=== PATIENT | male | born 1955 | race American Indian/Alaskan Native ===

== ENCOUNTER 2016-11-15 10:00 | Emergency (ER) | payer OTHER ==
--- NOTE | 2016-11-15 13:39 | Emergency Department Report ---
ED Lower Extremity HPI - General Chief Complaint: Extremity Injury, Lower Stated Complaint: LT FOOT SWOLLEN Time Seen by Provider: 11/15/16 13:13 Source: patient Mode of arrival: Ambulatory Limitations: No Limitations - History of Present Illness Initial Comments: 61-year-old male past medical history gout flares, hypertension, diabetes presents with complaint of approximately 7 days of left foot pain. Patient states that the pain and swelling in his left foot is classic of his previous gout flares. Patient went to primary doctor who prescribed tramadol. Patient states the tramadol is providing minimal to no relief of his pain. Patient denies fevers chills. Patient is ambulatory. Denies any direct trauma to the foot. Patient is ambulatory MD Complaint: other (left foot gout flare) Onset/Timin -: week(s) Injury: Foot: Left (1 week of left foot gout flare) Place: home Severity: moderate Severity scale (0 -10): 7 Improves With: nothing (patient is using tramadol with minimal relief of pain) Worsens With: weight bearing, movement Associated Symptoms: swelling, ambulatory (patient is ambulatory slightly antalgic gait) - Related Data Home Medications Medication Instructions Recorded Confirmed Last Taken metFORMIN [Glucophage] 500 mg PO BID 07/21/14 07/21/14 07/21/14 Previous Rx's Medication Instructions Recorded Last Taken Type HYDROcodone/APAP 5-325 [[place] 1 each PO Q6HR PRN #15 tablet 12/24/14 Unknown Rx 5-325 mg TAB] Indomethacin 50 mg PO Q8H #30 capsule 12/24/14 Unknown Rx Acetaminophen/Codeine [Tylenol 1 tab PO Q6H PRN #5 tab 11/15/16 Unknown Rx /Codeine # 3 tab] Naproxen [Naproxen TAB] 250 mg PO Q12H PRN #20 tablet 11/15/16 Unknown Rx Prednisone [predniSONE 5 mg (6-Day 5 mg PO .TAPER #1 tab.ds.pk 11/15/16 Unknown Rx Pack, 21 Tabs)] Allergies Allergy/AdvReac Type Severity Reaction Status Date / Time No Known Allergies Allergy Verified 11/15/16 10:21 ED Review of Systems ROS: Stated complaint: LT FOOT SWOLLEN Other details as noted in HPI Constitutional: denies: chills, fever Eyes: denies: eye pain, eye discharge, vision change ENT: denies: ear pain, throat pain Respiratory: denies: cough, shortness of breath, wheezing Cardiovascular: denies: chest pain, palpitations Endocrine: no symptoms reported Gastrointestinal: denies: abdominal pain, nausea, diarrhea Genitourinary: denies: urgency, dysuria Musculoskeletal: as per HPI (1 week of left foot gout flare). denies: back pain , joint swelling, arthralgia Skin: denies: rash, lesions Neurological: denies: headache, weakness, paresthesias Psychiatric: denies: anxiety, depression Hematological/Lymphatic: denies: easy bleeding, easy bruising ED Past Medical Hx - Past Medical History Hx Diabetes: Yes Hx Arthritis: Yes (hx of gout ) Additional medical history: GOUT - Surgical History Past Surgical History?: No - Social History Smoking Status: Former Smoker Substance Use Type: Alcohol, Prescribed - Medications Home Medications: Home Medications Medication Instructions Recorded Confirmed Last Taken Type metFORMIN [Glucophage] 500 mg PO BID 07/21/14 07/21/14 07/21/14 History HYDROcodone/APAP 5-325 [[place] 1 each PO Q6HR PRN #15 tablet 12/24/14 Unknown Rx 5-325 mg TAB] Indomethacin 50 mg PO Q8H #30 capsule 12/24/14 Unknown Rx Acetaminophen/Codeine [Tylenol 1 tab PO Q6H PRN #5 tab 11/15/16 Unknown Rx /Codeine # 3 tab] Naproxen [Naproxen TAB] 250 mg PO Q12H PRN #20 tablet 11/15/16 Unknown Rx Prednisone [predniSONE 5 mg (6-Day 5 mg PO .TAPER #1 tab.ds.pk 11/15/16 Unknown Rx Pack, 21 Tabs)] ED Physical Exam - General Limitations: No Limitations General appearance: alert, in no apparent distress - Head Head exam: Present: atraumatic, normocephalic - Eye Eye exam: Present: normal appearance, PERRL, EOMI - ENT ENT exam: Present: mucous membranes moist - Neck Neck exam: Present: normal inspection - Respiratory Respiratory exam: Present: normal lung sounds bilaterally. Absent: respiratory distress - Cardiovascular Cardiovascular Exam: Present: regular rate, normal rhythm. Absent: systolic murmur, diastolic murmur, rubs, gallop - GI/Abdominal GI/Abdominal exam: Present: soft, normal bowel sounds - Rectal Rectal exam: Present: deferred - Extremities Exam Extremities exam: Present: normal inspection - Expanded Lower Extremity Exam Left Hip exam: Present: normal inspection, full ROM Upper Leg exam: Present: normal inspection, full ROM Knee exam: Present: normal inspection, full ROM Lower Leg exam: Present: normal inspection, full ROM Ankle exam: Present: normal inspection, full ROM Foot/Toe exam: Present: full ROM (range of motion foot intact on exam), tenderness (some mild tenderness at first MCP joints. There is no appreciable erythema or visible cellulitis or induration of any aspect of the foot), swelling (mild forefoot swelling and that first MCP joint great toe) Neuro vascular tendon exam: Present: no vascular compromise (distal dorsalis pedis and posterior tibial pulses are intact, distal sensation is intact to light touch all toes and bottom of foot.) Gait: Positive: antalgic (patient has mildly antalgic gait due to pain in left foot but is ambulatory) 1 - Mild swelling in this region here, no visible erythema cellulitis or abscess no palpable heat or skin induration, no palpable fluctuance - Back Exam Back exam: Present: normal inspection - Neurological Exam Neurological exam: Present: alert, oriented X3, CN II-XII intact - Psychiatric Psychiatric exam: Present: normal affect, normal mood - Skin Skin exam: Present: warm, dry, intact, normal color. Absent: rash ED Course Vital Signs 11/15/16 10:17 Temperature 97.9 F Pulse Rate 72 Respiratory 17 Rate Blood Pressure 148/69 O2 Sat by Pulse 98 Oximetry ED Lower Extremity MDM - Lab Data Result diagrams: 11/15/16 14:14 11/15/16 14:14 - Medical Decision Making A/P: Left foot gout flare 1-patient's symptoms consistent with previous episodes of gout. I advised patient to stop using tramadol I will prescribe him a short course of NSAIDs and prednisone Dosepak and a few pills of Tylenol No. 3 for his pain. I referenced [employer] for gout management. I advised patient to return to the ED if he experiences fevers or chills or develops redness or erythema of the foot. 2-I referred patient to orthopedics and podiatry for follow-up 3-I advised pt on RICE therapy at home. Critical care attestation.: If time is entered above; I have spent that time in minutes in the direct care of this critically ill patient, excluding procedure time. ED Disposition Clinical Impression: Foot pain, left Gout flare Qualifiers: Gout site: foot Gout etiology: unspecified cause Laterality: left Qualified Code(s): M10.9 - Gout, unspecified Disposition: TO HOME OR SELFCARE Is pt being admited?: No Does the pt Need Aspirin: No Condition: Stable Instructions: Acute Gouty Arthritis (ED) Prescriptions: Acetaminophen/Codeine [Tylenol /Codeine # 3 tab] 1 tab PO Q6H PRN #5 tab PRN Reason: Pain Naproxen [Naproxen TAB] 250 mg PO Q12H PRN #20 tablet PRN Reason: Pain Prednisone [predniSONE 5 mg (6-Day Pack, 21 Tabs)] 5 mg PO .TAPER #1 tab.ds.pk Referrals: ADÁN JORDAN MD [Staff Physician] - 3-5 Days TOMER CLEANING DPM [Staff Physician] - 3-5 Days Time of Disposition: 15:31
[2016-11-15] MEDS ORDERED: TYLENOL PO ONE (14:18)
[2016-11-15 14:24] LABS: Basophils % (Auto) 0.9 % (0.0-1.8); Eosinophils % (Auto) 2.5 % (0.0-4.3); Hematocrit 39.2 % (35.5-45.6); Hemoglobin 12.8 gm/dl (11.8-15.2); Mean Corpuscular HGB Conc 33 % (32-34); Mean Corpuscular Hemoglobin 33 pg (28-32); Mean Corpuscular Volume 101 fl (84-94); Platelet Count 207 K/mm3 (140-440); Red Cell Distribution Width 13.4 % (13.2-15.2); White Blood Count 5.3 K/mm3 (4.5-11.0)
[2016-11-15 14:43] LABS: Anion Gap 19 mmol/L; BUN/Creatinine Ratio 23.63; Blood Urea Nitrogen 26 mg/dL (9-20); Calcium 9.3 mg/dL (8.4-10.2); Carbon Dioxide 24 mmol/L (22-30); Chloride 100.1 mmol/L (98-107); Potassium 4.5 mmol/L (3.6-5.0); Sodium 139 mmol/L (137-145)
--- NOTE | 2016-11-15 14:47 | XRay Report ---
FINAL REPORT EXAM: XR FOOT 3 LT HISTORY: pain, gout flare TECHNIQUE: Three views left foot. PRIORS: None currently available. FINDINGS: There is no acute fracture. There is no evidence for healing fracture. There is no acute dislocation. Mild narrowing and sclerosis at the 1st MTP and 1st metatarsal tarsal joints. No distinct erosions. No marginal osteophytes. Surrounding soft tissues do not demonstrate any dystrophic calcifications. Mild narrowing and sclerosis at the interphalangeal joints. There is no cortical destruction to suggest osteomyelitis. There are no suspicious osseous lesions. There are no radiopaque foreign objects. IMPRESSION: No acute osseous findings. Mild nonspecific scattered arthrosis.
[2016-11-15 15:04] LABS: Glucose 110 mg/dL (75-100)
[2016-11-15 15:47] VITALS: BP 147/86
== END 2016-11-15 15:47 | disposition home or self-care (01) ==
LOC: ED 10:00
DX: M79.672 Pain in left foot (principal); M10.9 Gout, unspecified; E11.9 Type 2 diabetes mellitus without complications; M19.90 Unspecified osteoarthritis, unspecified site; Z87.891 Personal history of nicotine dependence
CPT/HCPCS: 36415; 80048; 85025

== ENCOUNTER 2017-02-20 21:02 | Emergency (ER) | payer OTHER ==
--- NOTE | 2017-02-20 23:16 | XRay Report ---
FINAL REPORT PROCEDURE: XR KNEE BILAT 3V TECHNIQUE: Three views of bilateral knees are obtained. HISTORY: knee pain COMPARISON: No prior studies are available for comparison. FINDINGS: Left knee: Minimal medial compartmental narrowing is seen. Mild arthritic changes are seen in the anterior compartment. There may be small joint effusion. Mild medial osteophytes are seen. No fracture is seen. Right knee: Minimal medial compartmental narrowing is seen with minimal medial osteophytes. Joint effusion is seen. No fracture or dislocation is seen. IMPRESSION: Osteoarthritic changes are seen. No fractures are seen.
[2017-02-21] MEDS ORDERED: DELTASONE PO ONE (05:57)
[2017-02-21] MEDS ORDERED: TORADOL IM ONE (05:57)
--- NOTE | 2017-02-21 05:59 | Emergency Department Report ---
ED Lower Extremity HPI - General Chief Complaint: Extremity Problem,Nontraumatic Stated Complaint: BOTH KNEES SWELLING Time Seen by Provider: 02/21/17 05:51 Source: patient Mode of arrival: Ambulatory Limitations: No Limitations - History of Present Illness Initial Comments: pt is a 61 y/o aam with hx of Arthritis, DMII, and gout who presents for bilat knee pain x 3 days, pt has PCP Dr. Phillip Mccullough, however was unable to see him for 2 weeks pt advises out of medication , pain at this time is described as 5/ 10 aching , pt is exacerbated by movement and prolong standing , symptoms are relieved by indomethacin and prednisone po. pt remains ambulatory to baseline at this time. Injury: Knee: Right, Left Type of Injury: other (none ) Place: home Severity: moderate Severity scale (0 -10): 5 Improves With: nothing Worsens With: weight bearing, movement, palpation Context: other (denies fall injury or) Associated Symptoms: swelling, ambulatory. denies: numbness, tingling - Related Data Home Medications Medication Instructions Recorded Confirmed Last Taken metFORMIN [Glucophage] 500 mg PO BID 07/21/14 07/21/14 07/21/14 Previous Rx's Medication Instructions Recorded Last Taken Type HYDROcodone/APAP 5-325 [[place] 1 each PO Q6HR PRN #15 tablet 12/24/14 Unknown Rx 5-325 mg TAB] Indomethacin 50 mg PO Q8H #30 capsule 12/24/14 Unknown Rx Acetaminophen/Codeine [Tylenol 1 tab PO Q6H PRN #5 tab 11/15/16 Unknown Rx /Codeine # 3 tab] Naproxen [Naproxen TAB] 250 mg PO Q12H PRN #20 tablet 11/15/16 Unknown Rx Prednisone [predniSONE 5 mg (6-Day 5 mg PO .TAPER #1 tab.ds.pk 11/15/16 Unknown Rx Pack, 21 Tabs)] Indomethacin [Indocin] 50 mg RC TID #21 supp.rect 02/21/17 Unknown Rx predniSONE [Deltasone] 40 mg PO QDAY #10 tab 02/21/17 Unknown Rx Allergies Allergy/AdvReac Type Severity Reaction Status Date / Time No Known Allergies Allergy Verified 11/15/16 10:21 ED Review of Systems ROS: Stated complaint: BOTH KNEES SWELLING Other details as noted in HPI Constitutional: denies: chills, fever Eyes: denies: eye pain, eye discharge, vision change ENT: denies: ear pain, throat pain Respiratory: denies: cough, shortness of breath, wheezing Cardiovascular: denies: chest pain, palpitations Endocrine: no symptoms reported Gastrointestinal: denies: abdominal pain, nausea, diarrhea Genitourinary: denies: urgency, dysuria Musculoskeletal: arthralgia, myalgia Skin: denies: rash, lesions Neurological: as per HPI Psychiatric: denies: anxiety, depression Hematological/Lymphatic: denies: easy bleeding, easy bruising ED Past Medical Hx - Past Medical History Hx Diabetes: Yes Hx Arthritis: Yes (hx of gout ) Additional medical history: GOUT - Surgical History Past Surgical History?: No - Social History Smoking Status: Never Smoker Substance Use Type: Alcohol - Medications Home Medications: Home Medications Medication Instructions Recorded Confirmed Last Taken Type metFORMIN [Glucophage] 500 mg PO BID 07/21/14 07/21/14 07/21/14 History HYDROcodone/APAP 5-325 [[place] 1 each PO Q6HR PRN #15 tablet 12/24/14 Unknown Rx 5-325 mg TAB] Indomethacin 50 mg PO Q8H #30 capsule 12/24/14 Unknown Rx Acetaminophen/Codeine [Tylenol 1 tab PO Q6H PRN #5 tab 11/15/16 Unknown Rx /Codeine # 3 tab] Naproxen [Naproxen TAB] 250 mg PO Q12H PRN #20 tablet 11/15/16 Unknown Rx Prednisone [predniSONE 5 mg (6-Day 5 mg PO .TAPER #1 tab.ds.pk 11/15/16 Unknown Rx Pack, 21 Tabs)] Indomethacin [Indocin] 50 mg RC TID #21 supp.rect 02/21/17 Unknown Rx predniSONE [Deltasone] 40 mg PO QDAY #10 tab 02/21/17 Unknown Rx ED Physical Exam - General Limitations: No Limitations General appearance: alert, in no apparent distress - Head Head exam: Present: atraumatic, normocephalic - Eye Eye exam: Present: normal appearance - ENT ENT exam: Present: mucous membranes moist - Neck Neck exam: Present: normal inspection - Respiratory Respiratory exam: Present: normal lung sounds bilaterally. Absent: respiratory distress - Cardiovascular Cardiovascular Exam: Present: regular rate, normal rhythm. Absent: systolic murmur, diastolic murmur, rubs, gallop - GI/Abdominal GI/Abdominal exam: Present: soft, normal bowel sounds - Rectal Rectal exam: Present: deferred - Extremities Exam Extremities exam: Present: full ROM, tenderness (right anterior knee ), normal capillary refill, joint swelling. Absent: pedal edema, calf tenderness - Expanded Lower Extremity Exam Right Upper Leg exam: Present: normal inspection, full ROM Knee exam: Present: full ROM, tenderness (right anterior lateral knee pain there is no deformity no erythema no o), swelling, pain w/ pronation/ supination. Absent: abrasion, laceration, ecchymosis, deformity, crepidus, dislocation, erythema, effusion, posterior draw sign, pain/laxity with valgus, pain/laxity with varus, full knee extension Lower Leg exam: Present: normal inspection, full ROM. Absent: tenderness Ankle exam: Present: normal inspection, full ROM. Absent: tenderness Foot/Toe exam: Present: normal inspection, full ROM. Absent: tenderness Neuro vascular tendon exam: Present: no vascular compromise, motor deficit, sensory deficit, tendon deficit. Absent: pulse deficit, abnormal cap refill, pallor, abnormal 2-point discrimination, decreased fine/light touch, foot drop, peroneal nerve deficit Gait: Positive: observed and normal Left Knee exam: Present: normal inspection, full ROM, swelling, pain w/ pronation/ supination, full knee extension. Absent: tenderness, abrasion, laceration, ecchymosis, deformity, dislocation, erythema, effusion, posterior draw sign, pain/laxity with valgus, pain/laxity with varus Lower Leg exam: Present: normal inspection, full ROM Ankle exam: Present: normal inspection, full ROM Foot/Toe exam: Present: normal inspection, full ROM Neuro vascular tendon exam: Present: no vascular compromise. Absent: pulse deficit, abnormal cap refill, motor deficit, sensory deficit, tendon deficit, extremity cold to touch, pallor, abnormal 2-point discrimination, decreased fine /light touch, foot drop, peroneal nerve deficit, significant pain with passive ROM of distal joint Gait: Positive: observed and normal - Back Exam Back exam: Present: normal inspection, full ROM. Absent: tenderness - Neurological Exam Neurological exam: Present: alert, oriented X3, normal gait, reflexes normal - Psychiatric Psychiatric exam: Present: normal affect, normal mood - Skin Skin exam: Present: warm, dry, intact, normal color. Absent: rash ED Course Vital Signs 02/20/17 21:55 Temperature 98.5 F Pulse Rate 78 Respiratory 16 Rate Blood Pressure 135/55 O2 Sat by Pulse 99 Oximetry ED Lower Extremity MDM - Radiology Data Radiology results: report reviewed no fracture no soft tissue deformity arthritic changers bilat. - Medical Decision Making pt is a 61 y/o aam with hx of Arthritis, DMII, and gout who presents for bilat knee pain x 3 days, pt has PCP Dr. Phillip Mccullough, however was unable to see him for 2 weeks pt advises out of medication , pain at this time is described as 5/ 10 aching , pt is exacerbated by movement and prolong standing , symptoms are relieved by indomethacin and prednisone po. pt remains ambulatory to baseline at this time. Critical care attestation.: If time is entered above; I have spent that time in minutes in the direct care of this critically ill patient, excluding procedure time. ED Disposition Clinical Impression: Knee effusion, right Arthralgia Qualifiers: Joint pain location: knee Laterality: bilateral Qualified Code(s): M25.561 - Pain in right knee; M25.562 - Pain in left knee Disposition: DC-01 TO HOME OR SELFCARE Is pt being admited?: No Does the pt Need Aspirin: No Condition: Good Instructions: Acute Gouty Arthritis (ED), Knee Effusion (ED), Knee Pain (ED), Arthralgia (ED), Knee Exercises (GEN) Prescriptions: Indomethacin [Indocin] 50 mg RC TID #21 supp.rect predniSONE [Deltasone] 40 mg PO QDAY #10 tab Referrals: PRIMARY CARE, [Primary Care Provider] - 3-5 Days Forms: Work/School Release Form(ED) Time of Disposition: 06:24
[2017-02-21] MEDS ORDERED: ZESTRIL PO ONE (06:15)
[2017-02-21 06:49] VITALS: BP 194/90
== END 2017-02-21 06:49 | disposition home or self-care (01) ==
LOC: ED 21:02
DX: M25.561 Pain in right knee (principal); M25.562 Pain in left knee; M25.461 Effusion, right knee; E11.9 Type 2 diabetes mellitus without complications; M19.90 Unspecified osteoarthritis, unspecified site
CPT/HCPCS: 73562; 96372; 99283; J1885; J7512

== ENCOUNTER 2017-12-09 10:51 | Outpatient (CLI) | payer OTHER ==
--- NOTE | 2017-12-10 00:14 | XRay Report ---
FINAL REPORT EXAM: XR SPINE CERVICAL 4-5V HISTORY: CAROTID STENOSIS TECHNIQUE: Six views of the cervical spine were submitted. FINDINGS: There is mild narrowing of the C2-C3 and C6-C7 disc. The alignment appears normal. There is endplate spurring at all levels. The oblique views show no evidence of neural foraminal impingement. The prevertebral soft tissues and C1-C2 articulation appear intact. The soft tissues otherwise reveal left-sided carotid artery calcifications in the neck. IMPRESSION: Degenerative arthritic changes with endplate spurring noted. No acute process identified.
== END 2017-12-09 10:52 | disposition home or self-care (01) ==
LOC: VAS 10:51
PROVIDERS: ATTEND Internal Medicine
DX: I65.29 Occlusion and stenosis of unspecified carotid artery (principal); M50.31 Other cervical disc degeneration, high cervical region
CPT/HCPCS: 72050; 93880